=== PATIENT | female | born 1985 | race Two or more races ===

== ENCOUNTER 2020-01-14 09:54 | Inpatient (IN) | payer MEDICAID ==
[~2020-01-14] VITALS: Ht 157.5 cm; Wt 85.7 kg
[2020-01-14] MEDS ORDERED: PREN1COM12 PO (10:04)
[2020-01-14] MEDS ORDERED: IRON15TA3 PO (10:05)
[2020-01-14] MEDS ORDERED: METHYLERGONOVINE MALEATE 0.2 MG/ML IM PRN ×2 (10:45→21:45)
[2020-01-14] MEDS ORDERED: DEXT 5%/LR + PITOCIN 20UNITS/L 1,000 ML IV PRN (10:45)
[2020-01-14] MEDS ORDERED: MISOPROSTOL 200MCG TABLET VG PRN (10:45)
[2020-01-14] MEDS ORDERED: NALOXONE HCL 0.4 MG/ML 1ML VIAL IM PRN (10:45)
[2020-01-14] MEDS ORDERED: BUTORPHANOL TARTRATE 2 MG/ML VIAL IV PRN (10:45)
[2020-01-14] MEDS ORDERED: CARBOPROST TROMETHAMINE 250 MCG/ML AMPUL IM PRN (10:45)
[2020-01-14] MEDS ORDERED: LIDOCAINE HCL 1% 20ML VIAL (Pyxis) INJ INFIL PRN (10:45)
[2020-01-14] MEDS ORDERED: PENICILLIN G POTASSIUM 5 MMU in DEXT 5% WATER 100 ML IV NR (11:00)
[2020-01-14 11:18] LABS: CLARITY URINE CLEAR (CLEAR); COLOR URINE YELLOW (YELLOW); KETONES URINE NEGATIVE (NEGATIVE); LEUKOCYTE ESTERASE URINE TRACE (NEGATIVE); NITRITE URINE NEGATIVE (NEGATIVE); OCCULT BLOOD URINE TRACE (NEGATIVE); PROTEIN URINE NEGATIVE (NEGATIVE); SPECIFIC GRAVITY URINE 1.011 (1.005-1.030); UROBILINOGEN URINE 0.2 E.U./dL (0.2-1.0)
[2020-01-14] MEDS: LACTATED RINGERS 1,000 ML IV SCH ×2 (11:20→18:52)
[2020-01-14 11:26] LABS: BASOPHILS % 0.2 % (0.0-2.0); EOSINOPHILS % 0.5 % (0.0-5.0); HEMATOCRIT. 35.9 % (36.0-48.0); HEMOGLOBIN. 12.1 g/dL (12.0-16.0); LYMPHOCYTES % 13.1 % (20.0-50.0); MEAN CORPUSCULAR HEMOGLOBIN 27.3 pg (28.0-32.0); MEAN CORPUSCULAR VOLUME 80.7 fL (81.0-99.0); MEAN PLATELET VOLUME 10.9 fl (7.4-10.4); NEUTROPHILS % 79.2 % (40.0-76.0); PLATELET 283 x1000/uL (130-400); RED BLOOD CELL COUNT 4.45 mill/uL (4.2-5.4); RED CELL DISTRIBUTION WIDTH 14.6 % (11.6-14.6)
[2020-01-14 11:28] LABS: INR 0.9; PARTIAL THROMBOPLASTIN TIME 25.4 sec (23.4-31.0); PROTHROMBIN TIME 9.9 sec (9.6-11.0)
[2020-01-14 11:47] LABS: *AMPHETAMINES SCREEN URINE NEGATIVE (NEGATIVE)
[2020-01-14 11:48] LABS: *BARBITURATES SCREEN URINE NEGATIVE (NEGATIVE); *BENZODIAZEPINES SCREEN URINE NEGATIVE (NEGATIVE); *COCAINE SCREEN URINE NEGATIVE (NEGATIVE); METHADONE URINE SCREEN NEGATIVE (NEGATIVE); OPIATES URINE SCREEN NEGATIVE (NEGATIVE)
[2020-01-14 11:49] LABS: CANNABINOID URINE SCREEN NEGATIVE (NEGATIVE); PHENCYCLIDINE URINE SCREEN NEGATIVE (NEGATIVE)
[2020-01-14] MEDS: PENICILLIN G POTASSIUM 2.5 MMU in DEXTROSE 5% WATER 50 ML IV SCH ×2 (15:00→18:55)
[2020-01-14] MEDS ORDERED: ROPIVACAINE HCL/PF 0.2% (2MG/ML) EPID 200ML EPI NR (16:29)
[2020-01-14] MEDS ORDERED: LABETALOL 5MG/ML SYR 20 MG/4 ML SYRINGE IV PRN ×2 (16:30)
[2020-01-14] MEDS ORDERED: ONDANSETRON HCL 4MG/2ML INJ IV PRN ×2 (16:30)
[2020-01-14] MEDS ORDERED: HYDROMORPHONE HCL/PF 2MG/ML CPJ IV PRN ×2 (16:30)
[2020-01-14] MEDS ORDERED: MEPERIDINE HCL/PF 25MG/ML CPJ IV PRN ×2 (16:30)
[2020-01-14] MEDS ORDERED: MINERAL OIL 30ML BOTTLE PO NR (17:45)
[2020-01-14 19:14] LABS: HEPATITIS B SURFACE ANTIGEN NEGATIVE
[2020-01-14] MEDS ORDERED: RHO(D) IMMUNE GLOBULIN 300 MCG/SYR IM PRN (21:45)
[2020-01-14] MEDS ORDERED: DEXT 5%/LR + PITOCIN 20UNITS/L 1,000 ML IV SCH (21:45)
[2020-01-14] MEDS ORDERED: IBUPROFEN 800MG TABLET PO PRN (21:45)
[2020-01-14] MEDS ORDERED: LANOLIN OINT 7GM TUBE TOP PRN (21:45)
[2020-01-14] MEDS ORDERED: IBUPROFEN 400MG TABLET PO PRN (21:45)
[2020-01-14 22:45] VITALS: BP 125/80
[2020-01-15] MEDS ORDERED: TETANUS, DIPHTHERIA, PERTUSSIS VAC/PF 0.5ML (>7YR OLD) IM ONE (01:00)
[2020-01-15 05:18] VITALS: BP 125/80
[2020-01-15] MEDS ORDERED: INFLUENZA VIRUS VACCINE(AFLURIA) 0.5ML SYR IM ONE (08:00)
[2020-01-15 08:10] LABS: BASOPHILS % 0.2 % (0.0-2.0); EOSINOPHILS % 0.1 % (0.0-5.0); HEMATOCRIT. 32.9 % (36.0-48.0); HEMOGLOBIN. 11.1 g/dL (12.0-16.0); LYMPHOCYTES % 9.4 % (20.0-50.0); MEAN CORPUSCULAR HEMOGLOBIN 27.1 pg (28.0-32.0); MEAN CORPUSCULAR VOLUME 80.4 fL (81.0-99.0); MEAN PLATELET VOLUME 11.2 fl (7.4-10.4); MONOCYTES % 7.3 % (2.0-8.0); PLATELET 254 x1000/uL (130-400)
[2020-01-15 08:41] VITALS: BP 128/85
[2020-01-15] MEDS: PRENATAL VIT/FE FUMARATE/FA TABLET PO SCH (08:55)
[2020-01-15 15:47] VITALS: BP 113/76
[2020-01-15 19:30] VITALS: BP 118/83
[2020-01-16 04:00] VITALS: BP 117/8
[2020-01-16 06:57] LABS: HEMATOCRIT 31.6 % (36.0-48.0); HEMOGLOBIN 10.4 g/dL (12.0-16.0); MEAN CORPUSCULAR HEMOGLOBIN 26.8 pg (28.0-32.0); MEAN CORPUSCULAR VOLUME 81.2 fL (81.0-99.0); PLATELET 252 x1000/uL (130-400); RED BLOOD CELL COUNT 3.89 mill/uL (4.2-5.4); RED CELL DISTRIBUTION WIDTH 15.5 % (11.6-14.6)
[2020-01-16] MEDS ORDERED: FERR325T6 MT (07:21)
[2020-01-16] MEDS ORDERED: IBUP-2028 PO (07:21)
[2020-01-16 08:00] VITALS: BP 121/82
[2020-01-16] MEDS: PRENATAL VIT/FE FUMARATE/FA TABLET PO SCH (11:40)
== END 2020-01-16 12:15 | disposition home or self-care (01) | DRG 560 ==
LOC: OBSVTOIN 09:54 → 8 EST LDRP 09:54 → 8EST 22:42
PROVIDERS: ADMIT Obstetrics & Gynecology; ATTEND Obstetrics & Gynecology
PROC: 10E0XZZ Delivery of Products of Conception, External Approach (ICD-10-PCS; principal; 2020-01-14)
PROC: 00HU33Z Insertion of Infusion Device into Spinal Canal, Percutaneous Approach (ICD-10-PCS; 2020-01-14)
PROC: 3E0R3BZ Introduction of Anesthetic Agent into Spinal Canal, Percutaneous Approach (ICD-10-PCS; 2020-01-14)
DX: O99.12 Other diseases of the blood and blood-forming organs and certain disorders involving the immune mechanism complicating childbirth (principal); D72.829 Elevated white blood cell count, unspecified; O77.0 Labor and delivery complicated by meconium in amniotic fluid; O99.824 Streptococcus B carrier state complicating childbirth; Z37.0 Single live birth; Z3A.39 39 weeks gestation of pregnancy
CPT/HCPCS: 36415; 80305; 81003; 85025; 85027; 86592; 86703; 86762; 86850; 86900; 87340; 90686; 90715; 99281; G0378; J2540; J2590; J2795; J3490; J7060